=== PATIENT | female | born 2000 | race Caucasian/White ===

== ENCOUNTER 2020-05-07 16:32 | Emergency (ER) | payer BC, SELFPAY ==
[2020-05-07 16:47] VITALS: BP 105/68; PULSE 76; RESP 16; TEMP 36.3; O2SAT 100
[2020-05-07 16:48] VITALS: BP 105/68; PULSE 76; RESP 16; TEMP 36.3; O2SAT 100
--- NOTE | 2020-05-07 16:55 | ED.FEMALEGU ---
HPI - Female Genitourinary General Chief complaint: Urogenital-Female Stated complaint: uti symptoms Time Seen by Provider: 05/07/20 16:55 Source: patient Mode of arrival: ambulatory Limitations: no limitations History of Present Illness HPI Narrative: 19-year-old female who presents to [facility] with complaints of discomfort with urination which started today.Patient states that she has some burning and pressure with urination, has noted her urine to be cloudy in appearance and has noted blood when she wipes. Patient states that she has had past urinary tract infection with similar symptoms. Patient denies any flank pain, denies any nausea or vomiting, or any fevers chills or sweats. Patient denies use of any [id number] Azo for her symptoms. MD elicited complaint: dysuria, UTI and pelvic pain Pertinent past history: IUD and other (previous UTI) Onset (ago): day(s) (1) Location of symptoms: perineum and suprapubic Severity: mild Female Urogenital Radiation: Suprapubic Severity scale (1-10): 2 Quality of pain: cramping Consistency: constant Vaginal discharge: none Urinary symptoms: Dysuria and Hematuria Associated symptoms: abdominal pain (suprapubic) Treatment prior to arrival: none Sexual activity: Yes Patient : No Date of Last Menstrual Period: 04/25/20 Related Data Allergies Allergy/AdvReac Type Severity Reaction Status Date / Time No Known Allergies Allergy Verified 05/07/20 16:48 Review of Systems Review of Systems: Narrative: CONSTITUTIONAL: Denies fever, chills, or sweats. EYES: Denies visual changes, redness, or discharge. ENT: Denies rhinorrhea, congestion, sore throat, or otalgia. CARDIOVASCULAR: Denies chest pain, palpitations, or edema. RESPIRATORY: Denies cough or dyspnea. GASTROINTESTINAL: Positive suprapubic abdominal pain, no nausea, vomiting, or diarrhea. GENITOURINARY: Positive dysuria or hematuria. SKIN: Denies rash or itching. MUSCULOSKELETAL: Denies back pain, joint pain, or myalgia. NEUROLOGIC: Denies headache, numbness, or weakness. PSYCHIATRIC: Denies anxiety or depression. All systems reviewed & are unremarkable except as noted in HPI and below PMFSH Past Medical History Medical History (Updated 05/08/20 @ 00:00 by Background Daemon) Ear infection Urinary tract infection Surgical History Surgical History (Updated 05/08/20 @ 14:12 by Jimena Vigil NP) No history of previous surgery Social History Social History (Updated 05/07/20 @ 17:25 by Jimena Vigil NP) Smoking status: Never smoker Alcohol intake: unknown Substance use: unknown Living arrangements: with roommate(s) Occupation/Education: student Gender identity (if verbalized by the patient): Female Comments At time of signature, agree with nursing past medical, surgical, social history. There is no relevant family history pertinent to the presenting complaint Exam Narrative: Exam Narrative: GENERAL: Well-appearing, well-nourished, and in no acute distress. HEAD: Normocephalic, atraumatic. EYES: PERRLA and EOMI. ENT: Nares clear, no rhinorrhea or epistaxis. Mucous membranes moist. NECK: Supple. No lymphadenopathy CHEST: Clear to auscultation. No respiratory distress.SAO2 100% on room air HEART: Regular rate and rhythm. No murmur heard. Normal peripheral pulses. ABDOMEN: Soft, tender suprapubic area on palpation, nondistended, normal active bowel sounds.No McBurney point tenderness EXTREMITIES: Normal range of motion. No edema. SKIN: Warm, dry, no rash. NEURO: No focal deficits. Alert and oriented x3. Course Vital Signs Vital signs: Vital Signs Temperature 36.3 C L 05/07/20 16:47 Pulse Rate 76 05/07/20 16:47 Respiratory Rate 16 05/07/20 16:47 Blood Pressure 105/68 05/07/20 16:47 Pulse Oximetry 100 05/07/20 16:47 Temperature 36.3 C L 05/07/20 16:48 Pulse Rate 76 05/07/20 16:48 Respiratory Rate 16 05/07/20 16:48 Blood Pressure 105/68 05/07/20 16:48
== END 2020-05-07 17:20 | disposition home or self-care (01) ==
PROVIDERS: Emergency Provider Registered Nurse
DX: N39.0 Urinary tract infection, site not specified (principal)
CPT/HCPCS: 81003; 87086; 87088; 99213; G0463